=== PATIENT | male | born 1980 | race African-American/Black ===

== ENCOUNTER 2020-12-14 09:14 | Emergency (ER) | payer OTHER ==
[2020-12-14 10:27] LABS: BASOPHIL 0.7 % (0-2); EOSINOPHIL 8.4 % (0-5); HCT 31.8 % (42.0-52.0); HGB 10.2 g/dl (13.2-18.0); LYMPHOCYTE 21.9 % (15-48); MCH 28.2 pg (25.0-31.0); MCHC 32.1 g/dL (32.0-36.0); MCV 87.8 fL (78.0-100.0); MONOCYTE 9.5 % (0-12); MPV 9.6 fL (6.0-9.5); NEUTROPHIL 59.3 % (41-80); NRBC 0; PLT 306 K/uL (150-400); RBC 3.62 M/uL (4.70-6.00); RDW 14.7 % (11.5-14.0); WBC 5.7 K/uL (4.0-10.5)
[2020-12-14 10:37] LABS: INR 1.07 (0.9-1.2); PROTHROMBIN TIME 13.3 SECONDS (11.8-13.4); PTT 35.6 SECONDS (24.4-34.7)
[2020-12-14 10:39] LABS: D-DIMER 0.32 ug/mLFEU (0.00-0.41)
[2020-12-14 11:05] LABS: ALBUMIN 3.5 g/dL (3.4-5.0); BILIRUBIN - TOTAL 0.1 mg/dL (0.2-1.0); BUN/CREAT RATIO (CALC) 18.5 RATIO; CREATININE 0.65 mg/dL (0.67-1.17); GLOBULIN (CALCULATION) 3.8 g/dL; TOTAL PROTEIN 7.3 g/dL (6.4-8.2)
[2020-12-14] MEDS ORDERED: LIDODERM PATCH 51 EA TD (12:22)
[2020-12-14] MEDS ORDERED: MEDROL 4MG DOSEP4 MG PO (12:22)
[2020-12-14] MEDS ORDERED: IBUPROFEN800 MG PO (12:22)
[2020-12-14] MEDS ORDERED: CYCLOBENZAPRINE10 MG PO (12:22)
== END 2020-12-14 12:36 | disposition home or self-care (01) ==
LOC: FER 09:14
PROVIDERS: Emergency Medicine Emergency Medical Services
DX: M94.0 Chondrocostal junction syndrome [Tietze] (principal); F17.210 Nicotine dependence, cigarettes, uncomplicated
CPT/HCPCS: 36415; 71045; 80053; 83690; 84484; 85025; 85379; 85610; 85730; 93005; J1100; J1885; J2405; J7030